=== PATIENT | male | born 1940 | race Caucasian/White ===

== ENCOUNTER → 2017-11-28 | Outpatient (CLI) | payer MEDICARE, BC ==
[~2017-11-28] MED LIST: INDERAL60 MG PO; LORTAB 5 MG/5001 TAB
--- NOTE | 2017-11-28 11:26 | 2DMMODE ---
[place] [address] 2 D/M-MODE ECHOCARDIOGRAM Name: FUENTES CORTÉS Room: [facility]#: [id number] Admission: 11/28/17 Attend Phys: Munira Muñoz Discharge: Date of : 40 Date of Service: 11/28/17 1126 Report #: [id number] THIS REPORT FOR: //name// APPROVED REPORT Study performed: 11/28/2017 08:44:05 EXAM: Comprehensive 2D, Doppler, and color-flow Echocardiogram Patient Location: Out-Patient Status: routine BSA: 1.98 HR: 49 bpm BP: 178/92 mmHg Other Information Study Quality: Good Indications Murmur 2D Dimensions LVEF(%): 51.20 (>50%) IVSd: 11.86 (7-11mm) LVOT Diam: 20.58 (18-24mm) LVDd: 38.19 mm PWd: 11.86 (7-11mm) Ascending Ao: 26.72 (22-36mm) LVDs: 28.40 (25-40mm) Aortic Root: 28.52 mm Hodge's LVEF: 51.20 % Volumes Left Atrial Volume (Systole) LA ESV Index: 19.30 mL/m2 Aortic Valve AoV Peak Bernardo.: 2.77 m/s AO Peak Gr.: 30.65 mmHg LVOT Max P.64 mmHg AO Mean Gr.: 15.96 mmHg LVOT Mean P.53 mmHg LVOT Max V: 0.95 m/s AO V2 VTI: 60.66 cm LVOT Mean V: 0.55 m/s SHIRIN (VTI): 1.21 cm2 LVOT V1 VTI: 22.03 cm Mitral Valve E/A Ratio: 0.74 MV Decel. Time: 165.76 [place] [address] 2 D/M-MODE ECHOCARDIOGRAM Name: FUENTES CORTÉS Room: [facility]#: [id number] Admission: 11/28/17 Attend Phys: Munira Muñoz Discharge: Date of : 40 Date of Service: 11/28/17 1126 Report #: [id number] MV E Max Bernardo.: 0.77 m/s MV PHT: 48.07 ms MVA (PHT): 4.58 cm2 TDI E/Lateral E': 5.50 E/Medial E': 7.70 Medial E' Bernardo.: 0.10 m/s Lateral E' Bernardo.: 0.14 m/s Pulmonary Valve PV Peak Bernardo.: 1.31 m/s PV Peak Gr.: 6.91 mmHg Tricuspid Valve TR Peak Gr.: 37.05 mmHg RVSP: 42.05 mmHg Left Ventricle The left ventricle is normal size. There is normal LV segmental wall motion. There is normal left ventricular wall thickness. Left ventricular systolic function is normal. The left ventricular ejection fraction is within the normal range. LVEF is 55%. The left ventricular diastolic function is normal. Right Ventricle The right ventricle is normal size. The right ventricular systolic function is normal. Atria The left atrium size is normal. The right atrium size is normal. Aortic Valve Aortic valve is probably trileaflet. Aortic valve leaflets are sclerotic with decreased opening. No aortic regurgitation is present. Mild aortic stenosis.Mean gradient 16mmHg, peak 31mmHg Mitral Valve The mitral valve is normal in structure. Mild mitral regurgitation. No evidence of mitral valve stenosis. Tricuspid Valve The tricuspid valve is normal in structure. Mild to moderate tricuspid regurgitation. Pulmonic Valve The pulmonary valve is normal in structure. [place] [address] 2 D/M-MODE ECHOCARDIOGRAM Name: FUENTES CORTÉS Room: [facility]#: [id number] Admission: 11/28/17 Attend Phys: Munira Mñuoz Discharge: Date of : 40 Date of Service: 11/28/17 1126 Report #: [id number] Great Vessels The aortic root is normal in size. IVC is normal in size and collapses with >50% inspiration Pericardium There is no pericardial effusion. <Conclusion> LVEF is 55%. There is normal LV segmental wall motion. Aortic valve is probably trileaflet. Aortic valve leaflets are sclerotic with decreased opening. Mild aortic stenosis.Mean gradient 16mmHg, peak 31mmHg No aortic regurgitation is present. No evidence of mitral valve stenosis. Mild mitral regurgitation. <ELECTRONICALLY SIGNED> By: Ayden Barroso MD, FACC 11/28/17 1126 25 25 Ayden Barroso MD, FACC /INF
== END ==
LOC: M.CRD 08:29
DX: I08.1 Rheumatic disorders of both mitral and tricuspid valves (principal)